=== PATIENT | female | born 2000 | race Caucasian/White ===

== ENCOUNTER 2024-10-31 17:03 | Emergency (ER) | payer SELFPAY ==
[2024-10-31 17:14] VITALS: BP 139/72; PULSE 80; RESP 16; TEMP 37; O2SAT 100; BMI 28.8
--- NOTE | 2024-10-31 17:19 | DI.US.S_ITS ---
PROCEDURE: US OB <= 14 WEEKS FETUS INDICATIONS: 8 weeks, bright red blood and mild cramping OUTSIDE/PRIOR DATING DATA: Last menstrual period (LMP): September 07, 2025. LMP-based estimated date of delivery (CAITIE): June 14, 2025. First dating scan (date and location): October 31, 2024. Estimated date of delivery (CAITIE) from first dating scan: June 12, 2025. TECHNIQUE: Real-time scanning was performed of the fetus and maternal pelvic organs, with image documentation. Endovaginal scanning was also performed to better visualize the fetus and maternal ovaries. COMPARISON: None. FINDINGS: Embryo: Single living intrauterine gestation with estimated sonographic gestational age of approximately 8 weeks and 0 days based off crown-rump length measurement of 1.6 cm. heart rate measures approximately 163 beats per minute. A yolk sac is seen. No perigestational hemorrhage identified. Maternal organs: Ovaries appear unremarkable. IMPRESSION: Single living intrauterine gestation with estimated sonographic gestational age of approximately 8 weeks and 0 days based off crown-rump length measurement. Estimated dated delivery is approximately June 12, 2025 We strive to produce accurate, complete, and clear reports of imaging services. To assist us in improving patient care, this report was composed using standard report templates and voice recognition software. Therefore, it may contain abnormal punctuation, insertions and/or omissions. Occasional wrong-word or sound-alike substitutions may occur. Though we review the report and make efforts to correct it, we do recommend that the report be read carefully in proper context to recognize any text inaccuracies. Dictated by: David Torres M.D. on 10/31/2024 at 18:15 Approved by: David Torres M.D. on 10/31/2024 at 18:18
[2024-10-31 18:17] LABS: Add Manual Diff / Slide Review NO; Basophils Absolute Auto 100 /uL (0-100); Basophils Percent Auto 0.9 % (0-2); Eosinophils Absolute Auto 300 /uL (0-450); Eosinophils Percent Auto 2.5 % (2-4); Hematocrit 35.4 % (36-46); Hemoglobin 11.4 g/dL (12.0-16.0); Lymphocytes Absolute Auto 2000 /uL (1100-4500); Lymphocytes Percent Auto 17.1 % (25-40); Mean Corpuscular HGB Conc 32.3 % (30-36); Mean Corpuscular Hemoglobin 20.6 PG (26-34); Mean Corpuscular Volume 63.8 fL (80-100); Monocytes Absolute Auto 800 /uL (0-900); Monocytes Percent Auto 6.9 % (3-14); Neutrophils Absolute Auto 8300 /uL (1500-7000); Neutrophils Percent Auto 72.6 % (50-75); Platelet Count 255 X10^3/uL (150-400); Red Blood Cell Count 5.54 X10^6/uL (4.0-5.2); Red Cell Distribution Width 15.9 % (11.6-14.8); White Blood Cell Count 11.4 X10^3/uL (4.5-11.0)
[2024-10-31 18:26] LABS: Alanine Aminotransferase 15 IU/L (<35); Albumin 4.7 g/dL (3.5-5.0); Albumin Globulin Ratio 1.4 (1.0-2.8); Alkaline Phosphatase 43 U/L (38-126); Aspartate Aminotransferase 36 IU/L (14-36); BUN Creatinine Ratio 18.5 (6-22); Bilirubin Total 0.6 mg/dL (0.2-1.3); Blood Urea Nitrogen 10 mg/dL (7-17); Calcium 9.3 mg/dL (8.4-10.2); Carbon Dioxide 20 mmol/L (22-32); Chloride 105 mmol/L (98-107); Estimated Glomerular Filt Rate > 60 mL/min (>60); Globulin 3.3 g/dL (1.7-4.1); Glucose 100 mg/dL (70-100); Potassium 4.1 mmol/L (3.4-5.1); Sodium 135 mmol/L (137-145)
[2024-10-31 19:08] LABS: HCG Quantitative /Beta subunit 138440 mIU/mL; HEMOLYSIS < 15 (0-50)
--- NOTE | 2024-10-31 19:47 | PC.NURSE ---
Patient is not dizzy. She is 8 weeks and is having spotting today. No pads soaked, just pink tinge on pads. She has hx of still at 6 months old. she also states shes having some cramps. she denies lightheadedness, SOB, chest pain, dizziness abd pain.
[2024-10-31 19:53] LABS: Anisocytosis 1+; Microcytosis 2+; Platelet Estimate Adequate on smear
--- NOTE | 2024-10-31 19:53 | ED.PREGNANCY ---
HPI - General Chief complaint: Vaginal Bleeding Stated complaint: 1st trimester pregnance, bleeding Time Seen by Provider: 10/31/24 19:44 Source: patient Mode of arrival: Ambulatory History of Present Illness HPI Narrative: 24yo at 8wks gestation presents for spotting vaginally. No confirmed IUP. Has not established care with OBGYN yet. Related Data Allergies Allergy/AdvReac Type Severity Reaction Status Date / Time No Known Drug Allergies Allergy Verified 10/31/24 17:19 Exam Initial Vital Signs Initial Vital Signs: Vital Signs Temperature 98.6 F 10/31/24 17:14 Pulse Rate 80 10/31/24 17:14 Respiratory Rate 16 10/31/24 17:14 Blood Pressure 139/72 10/31/24 17:14 Pulse Oximetry 100 10/31/24 17:14 Oxygen Delivery Method Room Air 10/31/24 17:14 Const: Awake, alert, no acute distress, nontoxic appearing Cardiac: regular rate, regular rhythm RESP: unlabored, conversational without dyspnea GI: Soft, nontender, nondistended Skin: Warm, Dry, intact, no rashes Neuro: AO x3, CN II-XII grossly intact, moves all extremities Course Orders Ordered: ED Orders 10/31/24 17:19 US OB <= 14 weeks fetus Stat Type and Screen Stat 10/31/24 17:54 Complete Blood Count AUTO DIFF Stat Comprehensive Metabolic Panel Stat HCG Quantitative /Beta subunit Stat 10/31/24 19:50 Urine Culture Stat Urine Microscopic Stat Vital Signs Vital signs: Vital Signs - 8 hr 10/31/24 20:26 Pulse Rate 69 Respiratory Rate 16 Blood Pressure 109/67 Pulse Oximetry 98 Oxygen Delivery Method Room Air MDM - OB/Uterine Contractions Lab Data 10/31/24 17:54 10/31/24 17:54 Labs: Lab Results 10/31/24 10/31/24 10/31/24 Range/Units 17:19 17:54 19:50 WBC 11.4 H (4.5-11.0) X10^3/uL RBC 5.54 H (4.0-5.2) X10^6/uL Hgb 11.4 L (12.0-16.0) g/dL Hct 35.4 L (36-46) % MCV 63.8 L (80-100) fL MCH 20.6 L (26-34) PG MCHC 32.3 (30-36) % RDW 15.9 H (11.6-14.8) % Plt Count 255 (150-400) X10^3/uL Neut % (Auto) 72.6 (50-75) % Lymph % (Auto) 17.1 L (25-40) % [place] % (Auto) 6.9 (3-14) % Eos % (Auto) 2.5 (2-4) % Baso % (Auto) 0.9 (0-2) % Neut # (Auto) 8300 H (0593-1111) /uL Lymph # (Auto) 2000 (8464-3091) /uL [place] # (Auto) 800 (0-900) /uL Eos # (Auto) 300 (0-450) /uL Baso # (Auto) 100 (0-100) /uL Platelet Estimate Adequate on smear RBC Morphology See below Anisocytosis 1+ H Microcytosis 2+ H Sodium 135 L (137-145) mmol/L Potassium 4.1 (3.4-5.1) mmol/L Chloride 105 (98-107) mmol/L Carbon Dioxide 20 L (22-32) mmol/L BUN 10 (7-17) mg/dL Creatinine 0.54 (0.52-1.04) mg/dL Estimated GFR > 60 (>60) mL/min BUN/Creatinine Ratio 18.5 (6-22) Glucose 100 (70-100) mg/dL Calcium 9.3 (8.4-10.2) mg/dL Total Bilirubin 0.6 (0.2-1.3) mg/dL AST 36 (14-36) IU/L ALT 15 (<35) IU/L Alkaline Phosphatase 43 (38-126) U/L Total Protein 8.0 (6.3-8.2) g/dL Albumin 4.7 (3.5-5.0) g/dL Globulin 3.3 (1.7-4.1) g/dL Albumin/Globulin Ratio 1.4 (1.0-2.8) HCG, Quant 266623 mIU/mL Urine RBC None seen (0-5/HPF) Urine WBC 1-5/hpf (0-5/HPF) Ur Squamous Epith Cells 1-5 /hpf (0-5/HPF) Urine Bacteria Many (>30) H (None) Ur Culture Indicated? Specimen cultured Vol Urine Centrifuged 10ml (spun) Blood Type O Positive Antibody Screen Negative Urine Dip Bedside Urine Glucose Negative Bedside Urine Bilirubin - Negative Bedside Urine Ketone - Negative Urine Specific [place] 1.015 Bedside Urine Occult Blood +++ Bedside Urine pH 6.0 Bedside Urine Protein - Negative Bedside Urine Urobilinogen - Negative Bedside Urine Nitrite - Negative Bedside Urine Leukocytes + 70 Esterase Imaging Data US - OB: Radiologist's Impression: PROCEDURE: US OB <= 14 WEEKS FETUS INDICATIONS: 8 weeks, bright red blood and mild cramping OUTSIDE/PRIOR DATING DATA: Last menstrual period (LMP): September 07, 2025. LMP-based estimated date of delivery (CAITIE): June 14, 2025. First dating scan (date and location): October 31, 2024. Estimated date of delivery (CAITIE) from first dating scan: June 12, 2025. TECHNIQUE: Real-time scanning was performed of the fetus and maternal pelvic organs, with image documentation. Endovaginal scanning was also performed to better visualize the fetus and maternal ovaries. COMPARISON: None. FINDINGS: Embryo: Single living intrauterine gestation with estimated sonographic gestational age of approximately 8 weeks and 0 days based off crown-rump length measurement of 1.6 cm. heart rate measures approximately 163 beats per minute. A yolk sac is seen. No perigestational hemorrhage identified. Maternal organs: Ovaries appear unremarkable. IMPRESSION: Single living intrauterine gestation with estimated sonographic gestational age of approximately 8 weeks and 0 days based off crown-rump length measurement. Estimated dated delivery is approximately June 12, 2025 We strive to produce accurate, complete, and clear reports of imaging services. To assist us in improving patient care, this report was composed using standard report templates and voice recognition software. Therefore, it may contain abnormal punctuation, insertions and/or omissions. Occasional wrong-word or sound-alike substitutions may occur. Though we review the report and make efforts to correct it, we do recommend that the report be read carefully in proper context to recognize any text inaccuracies. Dictated by: David Torres M.D. on 10/31/2024 at 18:15 Approved by: David Torres M.D. on 10/31/2024 at 18:18 MDM Narrative Medical decision making narrative: Well-appearing patient with vaginal bleeding in early . Blood type O positive. Ultrasound shows confirmed IUP. Patient informed of results, she states that she was in the process of establishing with OBGYN in his considering several different locations. She was advised to follow up with OBGYN to discuss results. ED return precautions discussed at bedside. Discharge Plan Departure Patient Disposition: Home Clinical Impression: Vaginal bleeding affecting early Instructions: DI for Vaginal Bleeding During Activity Restrictions/Additional Instructions: Your ultrasound shows a liver intrauterine approximating 8 weeks. Your blood type is O+. Follow up with your OBGYN. You may notice continued spotting. If you have a large increase in your bleeding call your OBGYN for further recommendations. Referrals: Miscellaneous,Doctor, MD [Primary Care Provider] - Stand Alone Forms: Patient Portal/API/Survey
[2024-10-31 20:13] LABS: Bacteria Urine Many (>30); Culture Indicated Urine Specimen Cultured; RBC Urine None Seen (0-5/HPF); Squamous Epithelial Cell Urine 1-5 /HPF (0-5/HPF); Urine Volume 10mL (spun); WBC Urine 1-5/HPF (0-5/HPF)
[2024-10-31 20:26] VITALS: BP 109/67; PULSE 69; RESP 16; O2SAT 98
== END 2024-10-31 20:27 | disposition home or self-care (01) ==
PROVIDERS: Emergency Medicine; Emergency Provider Emergency Medicine
DX: O20.9 Hemorrhage in early pregnancy, unspecified (principal); Z3A.01 Less than 8 weeks gestation of pregnancy
CPT/HCPCS: 36415; 76801; 76817; 80053; 81003; 81015; 84702; 85025; 86850; 86900; 86901; 87086; 99281; 99284

== ENCOUNTER → 2024-12-04 10:50 | Outpatient (CLI) | payer OTHER, SELFPAY ==
[2024-12-04 11:46] LABS: Add Manual Diff / Slide Review NO; Basophils Absolute Auto 0 /uL (0-100); Basophils Percent Auto 0.4 % (0-2); Eosinophils Absolute Auto 100 /uL (0-450); Eosinophils Percent Auto 1.2 % (2-4); Hematocrit 35.1 % (36-46); Hemoglobin 11.4 g/dL (12.0-16.0); Lymphocytes Absolute Auto 1500 /uL (1100-4500); Lymphocytes Percent Auto 15.8 % (25-40); Mean Corpuscular HGB Conc 32.5 % (30-36); Mean Corpuscular Hemoglobin 20.9 PG (26-34); Mean Corpuscular Volume 64.2 fL (80-100); Monocytes Absolute Auto 500 /uL (0-900); Monocytes Percent Auto 5.4 % (3-14); Neutrophils Absolute Auto 7100 /uL (1500-7000); Neutrophils Percent Auto 77.2 % (50-75); Platelet Count 222 X10^3/uL (150-400); Red Blood Cell Count 5.46 X10^6/uL (4.0-5.2); White Blood Cell Count 9.2 X10^3/uL (4.5-11.0)
[2024-12-04 11:50] LABS: Appearance Urine UA SL CLOUDY; Bilirubin Urine UA NEGATIVE (NEGATIVE); Color Urine UA YELLOW; Glucose Urine UA NEGATIVE (Negative); Ketones Urine UA NEGATIVE (NEGATIVE); Leukocyte Esterase Urine UA NEGATIVE (NEGATIVE); Nitrite Urine UA NEGATIVE (Negative); Occult Blood Urine UA NEGATIVE (Negative); Protein Urine UA NEGATIVE (Negative); Specific Gravity Urine UA 1.025 (1.000-1.035); Urobilinogen Urine UA 0.2 E.U./dL (0.2)
[2024-12-04 12:06] LABS: Microcytosis 2+
[2024-12-04 12:07] LABS: Ovalocytes 1+
[2024-12-04 12:08] LABS: Anisocytosis 1+
[2024-12-05 04:36] LABS: RPR Screen Non Reactive (Non Reactive)
[2024-12-05 08:36] LABS: Varicella IgG Antibody Non Reactive (Non Reactive)
[2024-12-05 15:41] LABS: Hepatitis B Surface Antigen NEGATIVE s/c (NEGATIVE)
[2024-12-05 15:47] LABS: HIV 1 & 2 Ab/Ag 4th Gen Combo NEGATIVE (NEGATIVE); Hep C Virus Ab w/Reflex Quant NEGATIVE s/c (NEGATIVE)
== END ==
LOC: LAB 10:51
PROVIDERS: PCP Family Medicine; Referring Provider Family Medicine; Visit Provider Family Medicine
DX: Z34.80 Encounter for supervision of other normal pregnancy, unspecified trimester (principal)
CPT/HCPCS: 36415; 80055; 81003; 86787; 86803; 86850; 86900; 86901; 87086; 87389

== ENCOUNTER → 2025-03-19 09:40 | Outpatient (CLI) | payer OTHER, SELFPAY ==
[2025-03-19 12:17] LABS: Hematocrit 30.4 % (36-46); Hemoglobin 9.8 g/dL (12.0-16.0); Mean Corpuscular HGB Conc 32.4 % (30-36); Mean Corpuscular Hemoglobin 21.8 PG (26-34); Mean Corpuscular Volume 67.2 fL (80-100); Platelet Count 214 X10^3/uL (150-400); Red Blood Cell Count 4.53 X10^6/uL (4.0-5.2); Red Cell Distribution Width 15.2 % (11.6-14.8); White Blood Cell Count 11.8 X10^3/uL (4.5-11.0)
[2025-03-19 12:33] LABS: GTT (PREG) 1 Hour PP 50gm Dose 80 mg/dL (76-139)
== END ==
PROVIDERS: PCP Family Medicine; Referring Provider Family Medicine; Visit Provider Family Medicine
DX: Z34.80 Encounter for supervision of other normal pregnancy, unspecified trimester (principal)
CPT/HCPCS: 82950; 85027

== ENCOUNTER 2025-04-30 11:05 | Outpatient (CLI) | payer OTHER, SELFPAY | END 2025-04-30 12:15 | disposition home or self-care (01) | LOC: LABOR 11:35 → OB 13:57 | PROVIDERS: PCP Family Medicine; Referring Provider Family Medicine; Visit Provider Family Medicine | DX: Z34.83 Encounter for supervision of other normal pregnancy, third trimester (principal); Z3A.33 33 weeks gestation of pregnancy | CPT/HCPCS: 59025; G0378; G0379 ==

== ENCOUNTER 2025-06-06 19:28 | Inpatient (IN) | payer OTHER, SELFPAY ==
[2025-06-06 20:48] VITALS: BP 156/84; PULSE 81
[2025-06-06] MEDS: LABETALOL 20 MG/4 ML SYRINGE IV (20:48)
[2025-06-06 20:53] LABS: Add Manual Diff / Slide Review NO; Hematocrit 30.2 % (36-46); Hemoglobin 9.9 g/dL (12.0-16.0); Lymphocytes Absolute Auto 2000 /uL (1100-4500); Mean Corpuscular HGB Conc 32.9 % (30-36); Mean Corpuscular Hemoglobin 22.4 PG (26-34); Mean Corpuscular Volume 68.1 fL (80-100); Platelet Count 198 X10^3/uL (150-400)
[2025-06-06 21:06] LABS: Alanine Aminotransferase 14 IU/L (<35); Albumin 3.6 g/dL (3.5-5.0); Albumin Globulin Ratio 1.1 (1.0-2.8); Alkaline Phosphatase 219 U/L (38-126); Blood Urea Nitrogen 13 mg/dL (7-17); Calcium 9.5 mg/dL (8.4-10.2); Carbon Dioxide 23 mmol/L (22-32); Chloride 104 mmol/L (98-107); Estimated Glomerular Filt Rate > 60 mL/min (>60); Globulin 3.3 g/dL (1.7-4.1); Glucose 80 mg/dL (70-99); HEMOLYSIS < 15 (0-50); Potassium 4.0 mmol/L (3.4-5.1); Sodium 134 mmol/L (137-145); Total Protein 6.9 g/dL (6.3-8.2)
[2025-06-06 21:43] LABS: Protein (Total) Urine Random 360 mg/dL (0-12); Protein Creatinine Ratio Urine 2.57 GRAM/24H
[2025-06-06] MEDS: LACTATED RINGERS 1,000 ML 100 ML IV (22:04)
[2025-06-06] MEDS: MAGNESIUM SULFATE 4 GM/100 ML PIGGYBACK IV (22:05)
[2025-06-06] MEDS: MAGNESIUM SULFATE 20 GM/500 ML IV.SOLN IV (22:29)
[2025-06-06 23:07] VITALS: BP 143/91
--- NOTE | 2025-06-07 02:25 | PM.AN.REGBLK ---
Regional Block Pre-procedure Attending OB provider: Natasha Hughes PMH/ROS narrative: 25yo in labor requesting epidural. See pre-anesthesia evaluation for more details. Hx: No personal or family history of anesthesia problems. ASA Class: II Labs: Hct 30.2 % (36-46) L 06/06/25 20:27 Plt Count 198 X10^3/uL (150-400) 06/06/25 20:27 Medications: Current Medications Generic Name Dose Route Start Last Admin Trade Name Freq PRN Reason Stop Dose Admin Calcium Carbonate 1,000 mg 06/06/25 20:37 Calcium Carbonate 500 Mg Tab PO Q2HR PRN Dyspepsia Carboprost Tromethamine 250 mcg 06/06/25 20:37 Carboprost 250 Mcg/Ml Ampul IM Q90M PRN Bleeding Diphenhydramine HCl 25 mg 06/07/25 02:24 Diphenhydramine 50 Mg/Ml Vial IV Q10M PRN Pruritis Ephedrine Sulfate 10 mg 06/07/25 02:24 Ephedrine 50 Mg/Ml Vial IV Q5M PRN Blood pressure decrease more than 20% of baseline. Fentanyl 100 mcg 06/06/25 20:37 Fentanyl 100 Mcg/2 Ml Inj IV Q1H PRN Pain, Severe (7-10) Hydralazine HCl 5 mg 06/06/25 20:40 Hydralazine 20 Mg/Ml Vial IV NOW PRN SBP>= 160 or DBP >=110 Protocol Lactated Ringer's 1,000 mls @ 100 mls/hr 06/06/25 20:45 06/06/25 22:04 Lactated Ringers IV 06/07/25 06:44 100 mls/hr CONT AJ Administration Oxytocin/Lactated Ringer's 30 unit in 500 mls @ 200 mls/hr 06/06/25 20:37 Oxytocin Premix IV CONT PRN Bleeding Protocol Tranexamic Acid 1,000 mg/ 100 mls @ 600 mls/hr 06/06/25 20:37 Sodium Chloride IV NOW PRN Bleeding Magnesium Sulfate 20 gm in 500 mls @ 50 mls/hr 06/06/25 22:00 06/06/25 22:29 Magnesium Sulfate IV 50 mls/hr CONT AJ Administration Oxytocin/Lactated Ringer's 30 unit in 500 mls @ 2 mls/hr 06/06/25 21:50 Oxytocin Premix IV TITRATE [facility] Protocol 2 MILLIUNIT/MIN FENT 2MCG/ML BUPIV 0.125% EPI 200 mcg in 100 mls @ 6 mls/hr 06/07/25 02:30 Fentanyl/Bupiv/Ns 2mcg/Ml - 0.125% EPIDURAL CONT [facility] Labetalol HCl 20 mg 06/06/25 20:40 06/06/25 20:48 Labetalol 20 Mg/4 Ml Syringe IV 20 mg PRN PRN Administration SBP>= 160 or DBP >=110 Protocol Labetalol HCl 20 mg 06/06/25 21:52 Labetalol 20 Mg/4 Ml Syringe IV Q10M PRN Blood Pressure - High Lidocaine HCl 20 ml 06/06/25 20:37 Lidocaine 1% 20 Ml INJ INTRA-OP PRN Post Delivery Metoclopramide HCl 10 mg 06/07/25 02:25 Metoclopramide 10 Mg/2 Ml Inj IV 06/08/25 02:25 Q4H PRN Nausea Mineral Oil 30 ml 06/06/25 20:37 Mineral Oil 30 Ml Udc TOP PRN PRN Version Misoprostol 800 mcg 06/06/25 20:37 Misoprostol 200 Mcg Tablet KS NOW PRN Bleeding Misoprostol 400 mcg 06/06/25 20:37 Misoprostol 200 Mcg Tablet SL NOW PRN Bleeding Nalbuphine HCl 2.5 mg 06/07/25 02:24 Nalbuphine 20 Mg/Ml Ampul IV Q10M PRN Pruritis Naloxone HCl 0.2 mg 06/06/25 20:37 Naloxone 0.4 Mg/Ml Vial IV Q2MIN PRN Opiate Reversal Ondansetron HCl 4 mg 06/06/25 20:37 Ondansetron 4 Mg/2 Ml Inj IV Q4HR PRN Nausea And Vomiting Ondansetron HCl 4 mg 06/07/25 02:25 Ondansetron 4 Mg/2 Ml Inj IV 06/08/25 02:25 Q6HR PRN Nausea Oxytocin 10 unit 06/06/25 20:37 Oxytocin 10 Unit/Ml Vial IM NOW PRN Bleeding Allergies: Allergies Allergy/AdvReac Type Severity Reaction Status Date / Time No Known Drug Allergies Allergy Verified 06/06/25 19:43 Procedure Insertion date: 06/07/25 Insertion time: 01:57 Prep/Local: 1% lidocaine (Chloraprep) Interspace: L3-4 Patient position: sitting Needle: 18 gauge Hustead (27g Pencan for dural puncture) Loss of resistance with: saline SALO at (cm): 5 Catheter placed at SKIN (cm): 14 Catheter in SPACE (cm): 9 Insertion: No CSF, No Blood, No Paresthesia with insertion, No Paresthesia with injection and No Test dose reaction Initial Medications TEST DOSE time: 01:59 TEST DOSE: 1.5% lidocaine with epinephrine 1:200k (mL): 3 BOLUS DOSE time: 02:01 BOLUS DOSE (mL): 2 BOLUS DOSE med: other (Same as test dose) Infusion Initial rate (mL/hr): 8 Subsequent interventions: Epidural pump started at 02:16. Pt reports she is able to move BLE but they feels warm and heavy. Rates pain at 4/10, down from 9/10. Post-procedure Anesthesia date START: 06/07/25 Anesthesia time START: 01:49 Anesthesia date END: 06/07/25 Anesthesia time END: 06:02 Post-procedure Anesthesia Assessment: Yes CV function: HR/BP stable, Yes Resp function: RR/sat/airway adequate, Yes Post-op hydration adequate, Yes Pain control adequate, Yes Nausea & vomiting absent, Yes Temperature > 36 C, Yes Mental status appropriate and No Anesthesia complications
[2025-06-07] MEDS: LACTATED RINGERS 1,000 ML 100 ML IV (02:26)
[2025-06-07] MEDS: OXYTOCIN PREMIX 30 UNIT/500 ML PLAST..BAG IV (04:48)
--- NOTE | 2025-06-07 06:58 | P.PCNOB_ITS ---
Events: Pre-Eclampsia Labor & Delivery Delivery date: 06/07/25 Delivery Time: 06:02 Intrapartal Events: Severe Preeclampsia Cervical ripening method: none Delivery monitor: external FHT Route of delivery: L&D Laceration Description: Perineal - 2nd Degree and Labial (R) Delivery repair: vicryl Estimated blood loss (mL): 600 Quantitative Blood Loss: 677 Anesthesia Type: Epidural Complications: Pre-Eclampsia hemorhage Narrative: PROCEDURE: 25yo (previous IUFD at 6m EGA) at 38w4d presented with SROM on 06/06 on 17:30 with clear fluid and was admitted to Labor and Delivery. She was found to have severe range BPs. She required 1 dose if IV Labetolol with improvement of pressures. Urine PC was elevated to 2.57. She was started on Magnesium. The patient progressed through the 1st stage. Pain was controlled with epidural. The patient progressed through the 2nd stage and delivered a viable male infant with APGARs 7/8 at 06:02 via JANE with nuchal arm. PItocin was starting during pushing due to spacing out of contractions. The cord was cut and clamped after 60 seconds. The placenta delivered with gentle cord traction, and appeared complete. The perineum and vagina were inspected with 2nd degree perineal and R labial lacerations which were repaired in the usual fashion. Needle and sponge counts were correct.? The vagina was inspected and no items were left in situ. Yaneli was doing well with Ken, her , and Dad, Harpreet, at bedside. PREPROCEDURE DIAGNOSIS: Intrauterine at 38w4d Pre-eclampsia with SF GBS negative Iron deficiency on Po iron RH + POSTPROCEDURE DIAGNOSIS: Intrauterine at 38w5d, delivered Same as preprocedure Pre-E wtih SF hemorrhage nuchal arm [place] Baby Kaiden: gender: Male Presentation: vertex Position: Right Occiput Anterior Placenta delivery description: Spontaneous Cord Vessel Description: 3 Vessels score (1 min): 7 score (5 min): 8 Plan for aftercare: Routine care
--- NOTE | 2025-06-07 06:58 | PM.OBHP.IH.1 ---
OB HPI Date/Time Date of admission: 06/06/25 Date Patient Seen: 06/07/25 Time Patient Seen: 05:30 History of Present Condition Chief complaint: labor CAITIE Calculator Estimated Delivery Date Method Current WG Current Estimate 06/16/25 LMP (Certain) 38w 5d Estimated Gestational Age (weeks): 38w5 : 2 Para: 1 Narrative: 25yo (previous IUFD at 6m EGA) at 38w4d presented with SROM on 06/06 on 17:30 with clear fluid. On arrival, she was found to have severe range BPs. She required 1 dose if IV Labetolol with improvement of pressures. Urine PC was elevated to 2.57. has been complicated by hx of IUFD at 24 w EGA in 2018. This has been closely monitored by MFM throughout current . also complciated by anemia on PO iron. care: none Dating criteria OB: LMP confirmed by 1st trimester US Ultrasounds: normal 1st trimester US and normal mid trimester US Obstetrical complications: preeclampsia and other (anemia ) Medical complications OB: none Preadmission Labs Last OB Lab Results: Blood Type O Positive 06/06/25, 20:27 Antibody Screen Negative 06/06/25, 20:27 Hct, (36-46) 30.2 % L 06/06/25, 20:27 Hgb, (12.0-16.0) 9.9 g/dL L 06/06/25, 20:27 Hep Bs Antigen, (NEGATIVE) Negative s/c 12/04/24, 11:05 Hepatitis C Antibody, (NEGATIVE) Negative s/c 12/04/24, 11:05 Rubella Antibody, (>15) 10.0 IU/mL L 12/04/24, 11:05 VZV IgG Antibody, (Non Reactive) Non reactive 12/04/24, 11:05 Glucose 1 Hr 50 gm, (76-139) 80 mg/dL 03/19/25, 11:04 Group B Strep (PCR) Neg for grp b strep 05/21/25, 15:21 Glucose Tolerance Testin hr (80) Prior (ies) Past Pregnancies Del. Date GA/Weeks Labor Lgth Wt Sex Route Outcome Anesthesia Place Delv Breastfeed Preg Comp Name 09/29/18 ~24 vaginal still epidural [place] Delivery Date: 12/29/18 Last Updated by: Perla Thomas RN cause of IUFD unknown, needed IOL, no further complications after delivery Hx # Term Pregnancies: 2 Hx # Pregnancies: 1 Number of Living Children: 0 Multiple births: 0 Spontaneous abortions: 1 Ectopic pregnancies: 0 Elective abortions: 0 Evaluation Evaluation Baseline heart rate: 150 Variability: Moderate (6-25) monitor accelerations: Present Monitor Decelerations: Absent Contraction Frequency (minutes): 7 Status: Category l Dilation (cm): 4 Effacement (%): 80 Dilation: 3-4 cm Effacement: >/=80% station: -1 Non-invasive Membranes Rupture Test: positive [facility] Medical History (Updated 01/20/25 @ 19:00 by Tiesha Green) History of IUFD Delivery outcome of stillborn infant (~2017) Surgical History (Updated 01/20/25 @ 19:00 by Tiesha Green) Anesthesia History of rhinoplasty [place] teeth extracted Family History (Updated 01/20/25 @ 19:11 by Tiesha Green) Father Hypertension Hyperlipidemia Enlarged aorta Mother Anemia Diabetes mellitus Grandmother Cancer Breast cancer Grandfather Alcoholism Stroke Grandmother Diabetes mellitus Grandfather Cancer Social History marital status: number of children: 0 household members: spouse lives independently: Yes caregiver/support person: No housing: apartment pets and animals: Yes (cat) education level: high school occupational status: employed current occupational exposures/hazards: No special evelio needs: No travel history: recent seatbelt use: always water heater temp set < 120 deg: Yes working smoke detector in home: Yes fire extinguisher in home: Yes carbon monox detector in home: Yes firearms in home: No do you feel safe at home: Yes Smoking Status: Never smoker second hand exposure: No alcohol intake: former substance use type: marijuana during the past year weight has: remained stable well-balanced diet: rarely or never daily servings fruits/ve-4 caffeine: Yes (occasional soft drink) Type(s) of exercise: other Meds Home Medications and Allergies Home Medications ?Medication ?Instructions ?Recorded ?Confirmed ?Type [id number] 400 mcg-om3 35 mg-dha 25 1 tab PO DAILY 11/27/24 06/06/25 History mg-epa 5 mg-fish oil chewable tablet aspirin 81 mg tablet 81 mg PO DAILY 04/30/25 06/06/25 History ferrous sulfate 325 mg (65 mg 325 mg PO Q OTHER DAY 06/06/25 06/06/25 History iron) tablet (Iron (ferrous sulfate)) Allergies Allergy/AdvReac Type Severity Reaction Status Date / Time No Known Drug Allergies Allergy Verified 06/06/25 19:43 Review of Systems Review of Systems Narrative: + regular contractions - LOF + movement - vaginal bleeding - [place] - nausea - vision changes OB Exam Narrative Exam Narrative: GEN: uncomfortable appearing, breathing through contractions Pulm: breathing comfortably on RA ABd: gravid MSK: laying in bed, moving all extremities neuro: non-focal Objective Labs 06/06/25 20:27 06/06/25 20:27 Labs: Laboratory Results - last 24 hr 06/06/25 06/06/25 20:27 21:15 WBC 14.6 H RBC 4.43 Hgb 9.9 L Hct 30.2 L MCV 68.1 L MCH 22.4 L MCHC 32.9 RDW 15.1 H Plt Count 198 Neut % (Auto) 78.5 H Lymph % (Auto) 13.6 L [place] % (Auto) 6.1 Eos % (Auto) 1.4 L Baso % (Auto) 0.4 Neut # (Auto) 76912 H Lymph # (Auto) 2000 [place] # (Auto) 900 Eos # (Auto) 200 Baso # (Auto) 100 Nucleated RBCs Cancelled Hypersegmented Neuts Cancelled Hypogranular Neuts Cancelled Reactive Lymphocytes Cancelled Smudge Cells Cancelled Other Cell Type Cancelled Toxic Granulation Cancelled Toxic Vacuolation Cancelled Dohle Bodies Cancelled Servando Rods Cancelled WBC Morphology Comment Cancelled Platelet Estimate Cancelled Clumped Platelets Cancelled Plt Morphology Comment Cancelled RBC Morphology Cancelled Dimorphic RBCs Cancelled Polychromasia Cancelled Hypochromasia Cancelled Poikilocytosis Cancelled Basophilic Stippling Cancelled Anisocytosis Cancelled Microcytosis Cancelled Macrocytosis Cancelled Spherocytes Cancelled Pappenheimer Bodies Cancelled Sickle Cells Cancelled Target Cells Cancelled Tear Drop Cells Cancelled Ovalocytes Cancelled Stomatocytes Cancelled Helmet Cells Cancelled Sims-[place] Bodies Cancelled [place] Rings Cancelled [place] Cells Cancelled Acanthocytes (Spur) Cancelled Rouleaux Cancelled Schistocytes Cancelled Sodium 134 L Potassium 4.0 Chloride 104 Carbon Dioxide 23 BUN 13 Creatinine 0.76 Estimated GFR > 60 BUN/Creatinine Ratio 17.1 Glucose 80 Calcium 9.5 Total Bilirubin 0.5 AST 30 ALT 14 Alkaline Phosphatase 219 H Total Protein 6.9 Albumin 3.6 Globulin 3.3 Albumin/Globulin Ratio 1.1 U Random Total Protein 360 H Urine Creatinine 139.87 Protein/Creatinin Ratio 2.57 Blood Type O Positive Antibody Screen Negative Assessment and Plan Assessment and Plan Assessment and Plan narrative: 25 yo (IUFD at 24 weeks) at 38w4d presenting with SROM and found to have severe range BPs and elevated urine PC SROM - ROM at 17:30 on 06/06 - Admit to LD - CBC, CMP, TS - Expectant management - GBS neg - cephalic Pre- E with SF: Urine PC elevated on arrival and BPs severe range, decreased with one dose IV antihypertensive. nml Plts, nml Cr, nml LFTs - IV Labetolol PRN for severe range BPs - Start Mag 4g bolus Anemia in : Last Hgb 10.3, Hgb on arrival here 9.9 - PPH meds in the room - plan for PP CBC Time-Based Coding :: [TOTAL MINUTES] spent with patient and on the chart (including review of chart, obtaining history, exam, reviewing outside data, placing orders, documenting exam and treatment plan, and counseling patient) on [DATE].
[2025-06-07 07:57] LABS: Add Manual Diff / Slide Review NO; Hematocrit 28.5 % (36-46); Hemoglobin 9.4 g/dL (12.0-16.0); Lymphocytes Absolute Auto 1000 /uL (1100-4500); Mean Corpuscular HGB Conc 32.9 % (30-36); Mean Corpuscular Hemoglobin 22.3 PG (26-34); Mean Corpuscular Volume 67.9 fL (80-100); Platelet Count 193 X10^3/uL (150-400)
[2025-06-07 08:19] LABS: Magnesium 5.2 mg/dL (1.6-2.3)
[2025-06-07 08:22] LABS: Anisocytosis 1+
[2025-06-07 08:23] LABS: Microcytosis 1+; Tear Drop Cells 1+
[2025-06-07] MEDS: ACETAMINOPHEN 325 MG TABLET 650 MG PO ×2 (08:33→18:25)
[2025-06-07] MEDS: LANOLIN OINT 7 GM 1 APPLIC TOP (08:33)
[2025-06-07] MEDS: FISH OIL 1,000 MG CAPSULE 1000 MG PO (08:33)
[2025-06-07] MEDS: DERMOPLAST SPRAY 20% 60 ML 1 SPRAY TOP (08:34)
[2025-06-07] MEDS: IBUPROFEN 600 MG TABLET PO ×2 (08:34→18:24)
[2025-06-07] MEDS: MAGNESIUM SULFATE 20 GM/500 ML IV.SOLN IV ×2 (08:37→18:45)
[2025-06-07 19:12] LABS: Magnesium 6.2 mg/dL (1.6-2.3)
[2025-06-08] MEDS: IBUPROFEN 600 MG TABLET PO ×4 (00:29→18:38)
[2025-06-08] MEDS: ACETAMINOPHEN 325 MG TABLET 650 MG PO ×4 (00:29→18:38)
[2025-06-08] MEDS: MAGNESIUM SULFATE 20 GM/500 ML IV.SOLN IV (04:32)
--- NOTE | 2025-06-08 09:11 | PM.OBPN.1 ---
Subjective - OB Subjective Patient comments: pain well controlled [place] baby status: nursing well and other (respiratory distress) feeding status: exclusively breast feeding Narrative: This is a 25 yo G2 now P1 (previous IUFD at 6m EGA) at 38w4d presented with SROM on 06/06 on 17:30 with clear fluid and was admitted to Labor and Delivery. She was found to have severe range BPs. She required 1 dose if IV Labetolol with improvement of pressures. Urine PC was elevated to 2.57. She was started on Magnesium. Magnesium off at 6am this AM. Blood pressures stable. No pain. well. Date Patient Seen: 06/08/25 Exam Vital Signs (past 8 hours): BP: 135/85 Objective Labs 06/07/25 07:40 06/06/25 20:27 Labs: Laboratory Results - last 24 hr 06/07/25 18:37 Magnesium 6.2 H* Assessment & Plan Plan day: 1 plan OB: routine care Comments: 25 yo G2 now P1 who delivered at 38w4d following SROM. . Diagnosed with severe pre-e during labor. Severe Pre-E S/p magnesium off at 6am today. BP stable. Higher end of normal, likely will start 30 mg procardia if pressures elevate. PPH Received IV iron yesterday. Asymptomatic. Will hold off on further blood work. well. No pain. Ambulating without difficulty. Time-Based Coding :: 30 minutes spent with patient and on the chart (including review of chart, obtaining history, exam, reviewing outside data, placing orders, documenting exam and treatment plan, and counseling patient) on 06/08.
[2025-06-09] MEDS: IBUPROFEN 600 MG TABLET PO ×2 (00:25→06:43)
[2025-06-09] MEDS: ACETAMINOPHEN 325 MG TABLET 650 MG PO ×2 (00:25→06:43)
[2025-06-09] MEDS: NIFEdipine 30 MG TAB ER PO (01:49)
--- NOTE | 2025-06-09 08:00 | P.DS_ITS ---
Discharge Providers Provider Date of admission: 06/06/25 19:28 Discharge Date: 06/09/25 Primary care physician: Natasha Hughes MD Consults: 06/06/25 20:37 Consult to Anesthesiology Urgent Comment: Consulting Provider: Katarina Montenegro Reason for consultation: Epidural Has provider been notified: No 06/07/25 07:30 Consult to Stockroom Coordinator Routine Comment: Discharge provider: Natasha Hughes MD Summary Hospital Course Date Patient Seen: 06/09/25 Time Patient Seen: 07:30 Hospital Course: 25yo (previous IUFD at 6m EGA) present at 38w4d with SROM on 06/06 on 17:30 with clear fluid and was admitted to Labor and Delivery. She was found to have severe range BPs. She required 1 dose if IV Labetolol with improvement of pressures. Urine PC was elevated to 2.57. She was started on Magnesium. The patient progressed through the 1st stage. Pain was controlled with epidural. The patient progressed through the 2nd stage and delivered a viable male infant with APGARs 7/8 at 06:02 via JANE with nuchal arm. Pitocin was starting during pushing due to spacing out of contractions. The cord was cut and clamped after 60 seconds. The placenta delivered with gentle cord traction, and appeared complete. The perineum and vagina were inspected with 2nd degree perineal and R labial lacerations which were repaired in the usual fashion. QBL of 677ml and baseline Hgb low so CBC checked and found to be only slightly lower than admission. She was givne an IV iron infusion as she was previously taking PO iron and had not had significant improvement in Hgb on this during . She continued on Mag for 24 hours and BPs were well controlled. After mag was DC'ed, Bps were mildly elevated. she was started in Nifedipine 30mg XL daily with plans for BP check in 2 days. At this time, she is ambulating without sx. Bleeding is minimal. She is well. She denies all pre-E sx and Bp control improved on nifedipine (122/90, 123/76, 121/75 were the last 3 checks) Peripartum Data Delivery Method: Natural Vaginal Laceration Description: Perineal - 2nd Degree and Labial complications: uterine atony [place]: Gender: Male Disposition of : home Status at Discharge Functional status at discharge: independent ambulation Time Spent with Patient Time attestation: Total time spent providing and/or coordinating discharge services: Time spent: Less than 30 minutes Objective Labs 06/07/25 07:40 06/06/25 20:27 Exam Vital Signs (past 8 hours): BP 122/90, 123/76, 121/75 P- 96 RR- 18 Temp- 98.8 O2 sat- 97% Narrative Exam Narrative: GEN: Healthy appearing, well-developed, NAD. PSYCH: Good Judgment. AOx3. Normal memory, mood, and affect HEENT: -Head: NC/AT -Eyes: No discharge or redness CV: warm and well perfused LUNGS: breathing comfortably on RA SKIN: Warm, well perfused. NEURO: No focal deficits Discharge Plan Discharge Plan Patient Disposition: Home Discharge orders & Medications Prescriptions: New nifedipine 30 mg tablet extended release 30 mg PO DAILY Qty: 60 0RF Continued [id number] oil 400 mcg-35 mg -25 mg-5 mg tablet,chewable 1 tab PO DAILY ferrous sulfate [Iron (ferrous sulfate)] 325 mg (65 mg iron) tablet 325 mg PO Q OTHER DAY Discontinued aspirin 81 mg tablet 81 mg PO DAILY Follow up/Referrals: Natasha Hughes MD [Primary Care Provider, Family Practice] Referral Note: Please follow up for your Blood pressure check on Monday along with your appointment. Additionally, please follow up for your 6 week appointment as scheduled. Please arrive 15 minutes early for check in. Visit Report/Discharge Packet Stand Alone Forms: Discharge: Care, Patient Portal/API, Stroke Signs & Symptoms Discharge Data Primary Care Provider: Natasha Hughes
[2025-06-09 12:00] VITALS: BP 139/83; PULSE 79; RESP 17; TEMP 36.8
== END 2025-06-09 12:15 | disposition home or self-care (01) | DRG 807 ==
PROVIDERS: Admitting Provider Family Medicine; PCP Family Medicine; Referring Provider Family Medicine; Visit Provider Family Medicine
DX: O14.14 Severe pre-eclampsia complicating childbirth (principal); Z37.0 Single live birth; O90.81 Anemia of the puerperium; D50.0 Iron deficiency anemia secondary to blood loss (chronic); O72.1 Other immediate postpartum hemorrhage; O70.1 Second degree perineal laceration during delivery; Z3A.38 38 weeks gestation of pregnancy
CPT/HCPCS: 36415; 59025; 59050; 80053; 82570; 83735; 84112; 84156; 85025; 86850; 86900; 86901; A9270; G0379; J2590; J3475; Q0138